=== PATIENT | male | born 1945 ===

== ENCOUNTER → 2021-04-23 | Outpatient (CLI) | payer SELFPAY | END | disposition home or self-care (01) | LOC: LAB SHORT 08:16 | DX: L57.0 Actinic keratosis (principal); D22.5 Melanocytic nevi of trunk | CPT/HCPCS: 88305 ==

== ENCOUNTER → 2022-06-27 | Outpatient (CLI) | payer MEDICARE | END | disposition home or self-care (01) | LOC: PLD 14:46 → LAB SHORT 14:46 → LAB 14:46 | DX: L57.0 Actinic keratosis (principal); L83 Acanthosis nigricans; W90.8 Exposure to other nonionizing radiation | CPT/HCPCS: 88305 ==